=== PATIENT | female | born 1955 | race Caucasian/White ===

== ENCOUNTER 2020-11-08 15:00 | Outpatient (CLI) | payer BC, SELFPAY | END 2020-11-08 15:01 | disposition home or self-care (01) | LOC: ANHLAB 15:08 | PROVIDERS: Visit Provider Nurse Practitioner Adult Health | DX: R30.0 Dysuria (principal) | CPT/HCPCS: 87077; 87086; 87088; 87186 ==

== ENCOUNTER 2020-11-28 20:57 | Emergency (ER) | payer BC, SELFPAY ==
--- NOTE | ~2020-11-28 | XR_ITS ---
EXAMINATION: XR foot RT min 3V DATE: 11/28/2020 21:30 INDICATION: Right foot pain TECHNIQUE: Dorsoplantar, lateral, and 2 oblique views of the right foot were obtained. COMPARISON: 12/28/2010 FINDINGS: There is no fracture, dislocation, or subluxation. The bones, soft tissues, and joint space s are normal. IMPRESSION: 1. No acute osseous abnormality. Reviewed, dictated and finalized at location [facility]. [facility]
[2020-11-28 21:11] VITALS: BP 105/69; PULSE 76; RESP 14; TEMP 37.3; O2SAT 100
--- NOTE | 2020-11-28 21:21 | ED.LOWEXIN ---
HPI - Extremity Injury (Lower) General Chief Complaint: Extremity Injury, Lower Stated Complaint: foot injury Time Seen by Provider: 11/28/20 21:21 Source: patient Mode of arrival: ambulatory Limitations: no limitations History of Present Illness HPI Narrative: Patient is a 64-year-old female complaining of right foot pain after she tripped on her slippers and fell with 3 flights of stairs. Patient states her pain is a 6 out of 10, dull, aching, nonradiating. Patient denies any head, neck, back, chest, pelvis, hip or any other extremity pain/injury. Patient denies any LOC. Related Data Home Medications Medication Instructions Recorded Confirmed citalopram mg 11/28/20 mirabegron [Myrbetriq] mg PO 11/28/20 Allergies Allergy/AdvReac Type Severity Reaction Status Date / Time Sulfa (Sulfonamide Allergy Unknown Unknown Verified 11/28/20 21:20 Antibiotics) Review of Systems Review of Systems: All systems reviewed & are unremarkable except as noted in HPI and below Constitutional: Constitutional: Denies body ache(s), Denies chills, Denies excessive sweating, Denies fatigue, Denies fever(s), Denies headache(s), Denies lethargy, Denies malaise, Denies weakness and Denies weight loss Eyes: Eyes: Denies blurry vision, Denies change in vision and Denies loss of vision ENT: Denies dizziness, Denies ear discharge, Denies headache(s), Denies lip swelling, Denies epistaxis, Denies nasal congestion, Denies neck pain, Denies throat swelling and Denies tongue swelling Cardiovascular: Cardiovascular: Denies chest pain, Denies chest pain at rest, Denies chest pain with activity, Denies diaphoresis, Denies rapid heart rate, Denies edema, Denies irregular heart rhythm, Denies lightheadedness, Denies palpitations, Denies dyspnea and Denies dyspnea on exertion Respiratory: Respiratory: Denies chest congestion, Denies cough, Denies hemoptysis, Denies dyspnea and Denies dyspnea on exertion Gastrointestinal: Gastrointestinal: Denies abdominal pain, Denies melena, Denies hematochezia, Denies diarrhea, Denies nausea, Denies vomiting and Denies hematemesis Musculoskeletal: Musculoskeletal: Denies abnormal gait, Denies deformity, Denies joint swelling, Denies neck pain and Denies numbness Neurologic: Denies Abnormal speech present, Denies abnormal gait, Denies confusion, Denies dizziness, Denies headache(s), Denies focal weakness, Denies loss of vision, Denies numbness, Denies Other visual disturbances, Denies Sensory deficit (Neuro) and Denies weakness Psychiatric: Psychiatric: Denies confusion, Denies depression, Denies auditory hallucinations, Denies homicidal ideation and Denies suicidal ideation Endocrine: Endocrine: Denies cold intolerance, Denies excessive sweating, Denies fatigue, Denies heat intolerance and Denies palpitations Hematologic/Lymphatic: Hematologic/Lymphatic: Denies easy bleeding and Denies easy bruising Allergic/Immunologic: Allergic/Immunologic: Denies lip swelling, Denies throat swelling and Denies tongue swelling Exam Const: General: cooperative, healthy appearing, comfortable, no acute distress, well developed, alert and awake; No confusion Orientation/consciousness: oriented to person, oriented to place, oriented to time, patient oriented x3 and No confusion Limitations: no limitations HENMT: Head: normal to inspection, normocephalic and atraumatic Ears: hearing grossly normal bilaterally, TM normal on the right and TM normal on the left General nose exam: Normal external nose present, Normal nares present and No nasal discharge present Face and sinus: normal facial exam Mouth: Yes Normal oral and palatal mucosa present, Yes lip normal, Yes tongue normal and Yes oropharynx normal Throat: posterior oropharynx normal, tonsils normal and uvula midline Eyes: General: appearance normal, both eyes and all related structures Pupils: Equal, round and reactive pupils present EOM: EOMs intact bilaterally Neck: Neck: koffi
[2020-11-28] MEDS: HYDROcodone/acetaminophen (*CRX) 5-325 MG TABLET 1 TAB PO (22:47)
[2020-11-28] MEDS: NAPROXEN SODIUM 275 MG TABLET PO (22:47)
[2020-11-28 22:51] VITALS: BP 103/70; PULSE 73; RESP 18; TEMP 37.1; O2SAT 98
== END 2020-11-28 22:53 | disposition home or self-care (01) ==
PROVIDERS: Emergency Provider Emergency Medicine
DX: S93.601A Unspecified sprain of right foot, initial encounter (principal); W10.9XXA Fall (on) (from) unspecified stairs and steps, initial encounter
CPT/HCPCS: 73630; 99283; A9270

== ENCOUNTER 2024-09-06 13:00 | Outpatient (CLI) | payer MEDICARE, SELFPAY ==
--- NOTE | ~2024-09-06 | DEXA_ITS ---
Bone Density Report Name: GUILLERMINA CHANG Age: 68 Sex: Female Ethnicity: White Date of : 1955 Indication: postmenopausal; screening for osteoporosis; height loss; Referring Provider: BRYN, WILLOW Blevins Study: Bone densitometry was performed. Exam Date: September 06, 2024 Accession number: [id number] Bone Density: Region BMD T-score Z-score Classification AP Spine(L1-L4) 0.903 -1.3 0.7 Osteopenia Femoral Neck (Left) 0.669 -1.6 0.1 Osteopenia Total Hip (Left) 0.843 -0.8 0.6 Normal Femoral Neck (Right) 0.665 -1.7 0.1 Osteopenia Total Hip (Right) 0.836 -0.9 0.6 Normal Total Hip Mean 0.840 -0.9 0.6 Normal World Health Organization criteria for BMD impression classify patients as: Normal (T-score at or above -1.0), Osteopenia (T-score between -1.0 and -2.5), or Osteoporosis (T-score at or below -2.5). 10-year Fracture Risk(1): Major Osteoporotic Fracture 10% Hip Fracture 1.4% Reported Risk Factors: [place] (), Neck BMD=0.669, BMI=26.4 (1) FRAX(R) Version 3.08. Fracture probability calculated for an untreated patient. Fracture probability may be lower if the patient has received treatment. Clinical Information Provided by Patient: Patient maximum height was 65 Menopause Age: 45 No regular weight bearing exercise Does not regularly consume dairy products Drinks caffeinated beverages Onset of menses at age 13 Number of children 1 Impression: The patient has low bone mass, based on the Right Femoral Neck T-score. The patient has an estimated ten-year risk of hip fracture of 1.4% and an estimated ten-year risk of major fracture of 10%, based on the WHO FRAX algorithm. Discussion: BONE DENSITY IS LOW AT ONE OR MORE SKELETAL SITES. This patient's lowest T-score is low at one or more skeletal sites. It meets the World Health Organization's (WHO) criteria for ?low bone mass? (T-score between -1.0 and -2.5). The patient's 10-year risk of fracture as calculated by FRAX is less than the threshold where pharmacological therapy is recommended by the National Osteoporosis Foundation (NOF). However, all treatment decisions require clinical judgment and consideration of individual patient factors, including patient preferences, comorbidities, previous drug use, risk factors not captured in the FRAX model (e.g., frailty, falls, vitamin D deficiency, increased bone turnover, interval significant decline in bone density) and possible under or overestimation of fracture risk by FRAX. The patient should follow a healthful lifestyle (good nutrition with adequate calcium and vitamin D, and appropriate weight-bearing exercise). Follow-Up: Consider repeating this study in 2 to 3 years to reassess this patient's status, or sooner if there is some new clinical indication. Reported by: MIKE on 09/06/2024 1:40:00 PM. Reviewed, dictated and finalized at location [facility]
== END 2024-09-06 13:01 | disposition home or self-care (01) ==
LOC: ANHIMG 13:02
PROVIDERS: PCP Family Medicine; Visit Provider Registered Nurse
DX: Z13.820 Encounter for screening for osteoporosis (principal); M81.0 Age-related osteoporosis without current pathological fracture; M85.88 Other specified disorders of bone density and structure, other site; M85.852 Other specified disorders of bone density and structure, left thigh; M85.851 Other specified disorders of bone density and structure, right thigh
CPT/HCPCS: 77080

== ENCOUNTER 2024-09-12 01:40 | Day surgery (SDC) | payer MEDICARE, SELFPAY ==
[2024-08-03 12:37] VITALS: BMI 25.7
[2024-08-31 14:59] VITALS: BMI 25.7
[2024-09-12 13:30] VITALS: BP 130/71; PULSE 73; RESP 18; TEMP 37.1; O2SAT 100
--- NOTE | 2024-09-12 13:35 | WPDANESEPPF ---
Anes - Initial Pre Proc Eval Procedure: Operation Date: 09/12/24 14:00 Proposed Procedures p Screening Colonoscopy - Adria Cleaning MD Date/Time: 09/12/24 13:35 Surgeon: Adria Cleaning MD Pre Op Diagnosis: screening colon Patient Data Age: 68 Gender: F Height: 1.63 m Weight: 68 kg Last Vital Signs Temp 37.1 C 09/12/24 13:30 Pulse 73 09/12/24 13:30 Resp 18 09/12/24 13:30 BP 130/71 09/12/24 13:30 Pulse Ox 100 09/12/24 13:30 O2 Del Method Room Air 09/12/24 13:30 Allergies Allergy/AdvReac Type Severity Reaction Status Date / Time Sulfa eye drops Allergy Other Uncoded 09/12/24 13:29 Home Medications ?Medication ?Instructions ?Recorded ?Confirmed ?Type citalopram 20 mg tablet 20 mg PO DAILY 11/28/20 08/31/24 History mirabegron 50 mg tablet,extended 50 mg PO DAILY 11/28/20 08/31/24 History release 24 hr (Myrbetriq) simvastatin 20 mg tablet 20 mg PO DAILY 01/05/23 08/31/24 History Patient hx anesthesia problems: none Family hx anesthesia problems: none Results Review: All pre-operative results and documents have been reviewed as part of the pre-operative evaluation. [facility] Past Medical History Medical History (Updated 09/12/24 @ 13:36 by Adam Patel MD) Hyperlipidemia Anxiety Family History Family History Father Cancer Hypertension Heart disease Mother Hypertension Heart disease Grandparent Heart disease Grandparent Heart disease Social History Social History Smoking status: Never smoker Alcohol intake: current Substance use: never Substance use type: does not use Lack of Transportation: No Lack of Food: Never True Current Housing: I Have Housing Concerned About Future Housing: No Difficulty Paying Gas/Electric Bills: No Difficulty Paying for Meds: No Currently Unemployed: No Education: Bachelor's Degree Difficulty w/ Childcare or Family Care: No Living arrangements: with family Spiritual care concerns: No Anes - Eval Final PreProcedure Day of Procedure 09/12/24 13:35 Patient weight: normal Heart: regular rate and rhythm Lungs: clear to auscultation Airway: Mallampati scale class II Neurological: alert and oriented Last oral intake: >/= 8 hours ASA classification: II Emergent: no Anesthetic plan: proceed Anesthesia type and monitoring: general GIVS and standard monitoring Results Review: All pre-operative results and documents have been reviewed as part of the pre-operative evaluation. Informed Consent: The patient's anesthetic plan and its attendant risks and benefits were discussed with the patient/family/POA. Questions were solicited and answers provided to the satisfaction of the patient/family/POA.
[2024-09-12] MEDS: LACTATED RINGERS 1,000 ML 150 ML IV CONT (13:42)
--- NOTE | 2024-09-12 15:03 | P.HP_ITS ---
H&P: HPI History of Present Illness Date/Time: 09/12/24 15:03 Chief Complaint: screening colonoscopy Narrative: This is the patient's first colonoscopy. There are no GI symptoms and there is no family history of colorectal cancer. Review of Systems Review of Systems: All systems reviewed & are unremarkable except as noted in HPI and below [facility] Past Medical History Medical History (Updated 09/12/24 @ 15:04 by Adria Cleaning MD) Hyperlipidemia Anxiety Family History Family History Father Cancer Hypertension Heart disease Mother Hypertension Heart disease Grandparent Heart disease Grandparent Heart disease Social History Social History Smoking status: Never smoker Alcohol intake: current Substance use: never Substance use type: does not use Lack of Transportation: No Lack of Food: Never True Current Housing: I Have Housing Concerned About Future Housing: No Difficulty Paying Gas/Electric Bills: No Difficulty Paying for Meds: No Currently Unemployed: No Education: Bachelor's Degree Difficulty w/ Childcare or Family Care: No Living arrangements: with family Spiritual care concerns: No Meds Home Medications and Allergies Home Medications ?Medication ?Instructions ?Recorded ?Confirmed ?Type citalopram 20 mg tablet 20 mg PO DAILY 11/28/20 09/12/24 History mirabegron 50 mg tablet,extended 50 mg PO DAILY 11/28/20 09/12/24 History release 24 hr (Myrbetriq) simvastatin 20 mg tablet 20 mg PO DAILY 01/05/23 09/12/24 History Allergies Allergy/AdvReac Type Severity Reaction Status Date / Time Sulfa eye drops Allergy Other Uncoded 09/12/24 13:29 Vital Signs Vital Signs - 24 hr 09/12/24 13:30 Temperature 98.7 F Pulse Rate 73 Respiratory Rate 18 Blood Pressure 130/71 Pulse Oximetry 100 Oxygen Delivery Room Air Exam Const: General: cooperative and healthy appearing Resp: Effort & Inspection: normal respiratory effort and able to speak in complete sentences Auscultation: clear to auscultation bilaterally Cardio: Rate: regular rate Rhythm: regular rhythm GI: Inspection: normal to inspection GI Palp: No No hepatosplenomegaly present Auscultation: normal bowel sounds Rectal Exam: deferred Skin: General skin exam: normal color Psych: Appearance: grossly normal Mental Status: mental status grossly normal Assessment and Plan Assessment and plan (1) Screening for malignant neoplasm of colon: Code(s): Z12.11 - Encounter for screening for malignant neoplasm of colon Status: Acute Assessment and Plan: The patient is deemed a good candidate for the procedure. Consent signed. Will proceed.
[2024-09-12 15:31] VITALS: BP 82/60; PULSE 55; RESP 18; O2SAT 99
[2024-09-12 15:42] VITALS: BP 112/59; PULSE 67; RESP 21; O2SAT 98
[2024-09-12 15:51] VITALS: BP 123/72; PULSE 67; RESP 20; O2SAT 100
== END 2024-09-12 16:00 | disposition home or self-care (01) ==
PROVIDERS: PCP Family Medicine; Visit Provider Internal Medicine Gastroenterology
PROC: 0DJD8ZZ Inspection of Lower Intestinal Tract, Via Natural or Artificial Opening Endoscopic (ICD-10-PCS; CPT 45378; principal; 2024-09-12 14:00)
DX: Z12.11 Encounter for screening for malignant neoplasm of colon (principal); K63.5 Polyp of colon; E78.5 Hyperlipidemia, unspecified; F41.9 Anxiety disorder, unspecified; Z80.9 Family history of malignant neoplasm, unspecified; Z82.49 Family history of ischemic heart disease and other diseases of the circulatory system
CPT/HCPCS: 45385; 88305; J2003; J2704; J7120

== ENCOUNTER 2025-04-24 10:35 | Outpatient (CLI) | payer MEDICARE, SELFPAY ==
--- NOTE | ~2025-04-24 | CT_ITS ---
CT of the Abdomen and Pelvis: Indication: Hematuria Technique: 2.5 mm axial scans were obtained through the abdomen and pelvis prior to and following in travenous administration of 130 cc of Omnipaque 350. Dose reduction technique was used on this scan b y utilizing automated exposure control and iterative reconstruction technique. The dose-length produc t (DLP) was 684.00 mGy-cm. Findings: Scans through the lung bases are unremarkable. The liver, spleen, pancreas, gallbladder, adrenals and kidneys are within normal limits. No evidence of aortic aneurysm. No lymphadenopathy. No bowel obstruction or bowel wall thickening. There is no evidence to suggest acute appendicitis. Images through the pelvis were performed. Urinary bladder unremarkable. No pelvic mass seen. No ascit es. Impression: No significant abnormalities seen. No etiology for hematuria identified. Reviewed, dictated and finalized at [facility]. Impression: No significant abnormalities seen. No etiology for hematuria identified.
--- OUTSIDE RECORDS SUMMARY | 2025-04-24 10:48 | XMS_ITS | Clinical Summary ---
Author Organization [facility] Address [address] [place] [address] Care Team Providers Care Production Bow Maker Name Role Phone Jose E Greco MD Primary Care Provider [phone] Allergies No known active allergies Medications estradiol (ESTRACE) 0.01 % (0.1 mg/gram) vaginal cream insert (1G) by vaginal route 3 times every week 3 6 10/07/2012 Active oxybutynin (GELNIQUE) 28 mg/0.92 gram (3 %) gel in metered-dose pump 0 10/07/2012 Active Surgical History Surgery Date Site/Laterality Comments BREAST CYST ASPIRATION BREAST BIOPSY Family History Medical History Relation Name Comments Heart attack Father Family history of myocardial infarction - (Added by TW Conv) Prostate cancer Father Family histo ry of malignant neoplasm of prostate - (Added by TW Conv) Other Other 1 No family histo ry of Cancer, breast; Other Other 2 No family histo ry of Cancer, colon; Other Other 3 No family histo ry of Cervical cancer; Other Other 4 No family histo ry of Ovarian cancer; Breast cancer Paternal cousin Relation Name Status Comments Father Other 1 Other 2 Other 3 Other 4 Paternal cousin Social History Tobacco Use Types Packs/Day Years Used Date Smoking Tobacco: Never Alcohol Use Standard Drinks/Week Comments Yes 0 (1 standard drink = 0.6 oz pur e alcohol) Comments No Sex and Gender Information Value Date Recorded Sex Assigned at Not on file 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 Gender Identity Not on file Sexual Orientation Not on file Obstetrics History Para Term AB IAB SAB Ectopic Multiple Livin g Live Births 1 Date Outcome GA Total Labor Labor/2nd/3rd Weight Sex Type Anes PTL Iesha A1 A5 Name Clin Last Filed Vital Signs Vital Sign Reading Time Taken Comments Blood Pressure 118/77 02/25/2015 3:27 PM CDT Pulse - - Temperature - - Respiratory Rate - - Oxygen Saturation - - Inhaled Oxygen Concentration - - Weight 69.8 kg (153 lb 15.9 oz) 02/25/2015 3:27 PM CDT Height 165.1 cm (5' 5) 02/25/2015 3:27 PM CDT Body Mass Index 25.63 02/25/2015 3:27 PM CDT Plan of Treatment Health Maintenance Due Date Last Done Comments Colon Cancer Screening-Colonoscopy 1955 Depression Screening 1955 Fall Risk Assessment 1955 Hepatitis C Screening 1955 Osteoporosis Screening-Bone Density Scan 1955 Hepatitis B Screening 12/23/1973 Pneumococcal vaccine 65+ (1 of 1 - PCV) 12/23/2005 Zoster Vaccine (1 of 2) 12/23/2005 DTaP/Tdap/Td Vaccine (2 - Td or Tdap) 09/27/2020 09/27/2010 Well Visit 65+ 12/23/2020 Influenza Vaccine (#1) 2025 Breast Cancer Screening-Mammogram 01/15/2026 01/15/2025, 11/17/2023, 11/16/2022, Additional history exists Procedures Procedure Name Priority Date/Time Associated Diagnosis Comments SCREENING MAMMOGRAM BILATERAL W MONTEZ Schedule Routine, Read Routine (OP Routine) 01/15/2025 2:55 PM CDT Screening mammogram, encounter for from Last 3 Months or Most Recently Relevant to Health Maintenance Results * Screening Mammogram Bilateral W Montez (01/15/2025 2:55 PM CDT) Anatomical Region Laterality Modality Breast Bilateral Mammography Impressions 01/16/2025 7:49 AM CDT Bilateral No evidence of malignancy in either breast. OVERALL BI-RADS FINAL ASSESSMENT: 1 - Negative RECOMMENDATION: Recommend bilateral annual screening mammography. Narrative 01/16/2025 7:49 AM CDT EXAMINATION: Screening Mammogram Bilateral W Montez: 01/15/2025 COMPARISON: Relevant prior studies available at the time of interpretation were reviewed. TECHNIQUE: Mammography was performed with 2D and digital breast tomosynthesis (DBT) images. CAD was utilized. BREAST PARENCHYMAL COMPOSITION: The breasts are heterogeneously dense, which may obscure small masses. FINDINGS: Bilateral There is no suspicious mass, calcification, or architectural distortion in either breast. us Self Screening Mammogram IMG MAMMO PROCEDURES Fi nal Result from Last 3 Months or Most Recently Relevant to Health Maintenance Insurance [facility] CHOICE PLUS [facility] HMO/PPO Address: [facility] [address] [place] [address] [employer] [facility] [facility] CHOICE OOS Member Subscriber Plan / Payer (Ef fective 2021-Present) Name:Kori Clinton Margot Relation to Subscriber:Self Name:Kori Clinton Payer ID:[id number] (NAIC) Type:[facility] Address: [address] CHOICE MEDICARE PPO [facility] CHOICE MEDICARE PPO Care Teams Production Bow Maker Relationship Specialty Start Date End Date Jose E Greco MD PCP - General Family Medicine 09/15/21
--- OUTSIDE RECORDS SUMMARY | 2025-04-24 10:48 | XMS_ITS | Clinical Summary ---
Author Organization [facility] [employer] [facility] Address [address] [place] [address] Care Team Providers Care Yard Caller Name Role Phone Unavailable Primary Care Provider Unavailabl e Source Comments [facility] [employer] [facility],non-owned Affiliates and Associated Physician Practices is amultiple site organization consisting of ambulatory clinics and hospital sitesin [place], [place], [place]. This disclosure is being madepursuant to the Care Everywhere program and may not contain all information available regarding this patient. 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 Gender Identity Not on file Sexual Orientation Not on file Plan of Treatment Health Maintenance Due Date Last Done Comments BONE DENSITY TESTING 1955 COLOGUARD (AGES 45-75) - COL ON CA SCREENING 1955 COLON MONITORING 1955 COLONOSCOPY - COLON CA SCREENING 1955 CT COLONOGRAPHY - COLON CA SCREENING 1955 Colorectal Cancer Screening 1955 FIT - COLON CA SCREENING 1955 FLEX SIG - COLON CA SCREENING 1955 LIPID TESTING 1955 MAMMOGRAM 1955 HEPATITIS C SCREENING 12/19/1973 DTAP/TDAP/TD VACCINES (1 - Tdap) 12/23/1974 PNEUMOCOCCAL VACCINE 50+ (1 of 1 - PCV) 12/23/2005 ZOSTER VACCINE (1 of 2) 12/23/2005 COVID-19 VACCINE (1 - 2023-2 5 season) 2024 DEPRESSION SCREENING 09/27/2024 MEDICARE AWV CALENDAR YEAR 2024 INFLUENZA VACCINE (#1) 2025 Respiratory Syncytial Virus (RSV) Vaccine Pt: or over 60 yrs (1 - 1-dose 75+ series) 12/23/2030 HEPATITIS B VACCINE Aged Out No longe r eligible based on patient's age to complete this topic HIB VACCINE Aged Out No longer eligi ble based on patient's age to complete this topic HPV VACCINE Aged Out No longer eligi ble based on patient's age to complete this topic MENINGOCOCCAL (Group B) VACC INE SHARED DECISION-MAKING Aged Out No longer eligibl e based on patient's age to complete this topic MENINGOCOCCAL GROUPS A/C/Y/W VACCINE Aged Out No longer eligible b ased on patient's age to complete this topic Insurance [facility] SELF PAY NO INSURANCE Member Subscriber Plan / Payer (Ef fective for All Dates) Name:Guillermina Chang Member ID:Not on file Relation to Subscriber:Not on file Name:GUILLERMINA CHANG Subscriber ID:Not on file (Home) Address: [address] [place] [address] Payer ID:Not on file Group ID:Not on file Type:Self Pay Address: [place], [place] [employer] MEDICARE ADV HMO & PPO
--- OUTSIDE RECORDS SUMMARY | 2025-04-24 10:48 | XMS_ITS | Clinical Summary ---
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 Gender Identity Not on file Sexual Orientation Not on file Plan of Treatment Health Maintenance Due Date Last Done Comments Hepatitis C Virus (HCV) Screening 1955 TdaP Immunization 1955 Cologuard 12/23/2000 Colonoscopy 12/23/2000 Colorectal Cancer Screening 12/23/2000 Immunochemical Fecal Occult Blood 12/23/2000 Pneumococcal Immunization (5 0+ years) (1 of 1 - PCV) 12/23/2005 Zoster Immunization (1 of 2) 12/23/2005 SARS-COV-2 Immunization (1 - 2023- season) 2024 Influenza Immunization (#1) 2025 Respiratory Syncytial Virus (RSV) Immunization (Adult) (1 - 1-dose 75+ series) 12/23/2030 Hepatitis B Immunization Aged Out No longer eligible based on patient's age to complete this topic Human Papillomavirus (HPV) Immunization Aged Out No longer eligible b ased on patient's age to complete this topic Meningococcal Immunization (ACWY) Aged Out No longer eligible based on patient's age to complete this topic Rotavirus Immunization Aged Out No lo nger eligible based on patient's age to complete this topic
--- OUTSIDE RECORDS SUMMARY | 2025-04-24 10:48 | XMS_ITS | Referral Summary ---
Author Organization [facility] Address [address] [place] [address] Care Team Providers Care Fiberglass Bonding Machine Tender Name Role Phone Jose E Greco MD Primary Care Provider [phone] Allergies No known active allergies Medications estradiol (ESTRACE) 0.01 % (0.1 mg/gram) vaginal cream insert (1G) by vaginal route 3 times every week 3 6 10/07/2012 Active oxybutynin (GELNIQUE) 28 mg/0.92 gram (3 %) gel in metered-dose pump 0 10/07/2012 Active Social History Tobacco Use Types Packs/Day Years Used Date Smoking Tobacco: Never Alcohol Use Standard Drinks/Week Comments Yes 0 (1 standard drink = 0.6 oz pur e alcohol) Comments No Sex and Gender Information Value Date Recorded Sex Assigned at Not on file Legal Sex Female 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 CHOICE PLUS [facility] HMO/PPO Address: [facility] [address] [place] [address] ANTH ACCESS BLUE ACCESS OOS BLUE ACC CHOICE OOS [employer] CHOICE MEDICARE PPO [employer] CHOICE MEDICARE PPO Care Teams Fiberglass Bonding Machine Tender Relationship Specialty Start Date End Date Jose E Greco MD PCP - General Family Medicine 09/15/21
--- OUTSIDE RECORDS SUMMARY | 2025-04-24 10:48 | XMS_ITS | Encounter Summary ---
Author Organization [facility] Address [address] [address] Care Team Providers Care Medical Staff Physician Name Role Phone Unavailable Primary Care Provider Unavailabl e Encounter Details Date Type Department Care Team (Late st Contact Info) Description 11/07/2024 Lab Requisition [facility] - DermPath Lab [address] [place] [address] Alvin García MD [address] [place] [address] Social History Tobacco Use Types Packs/Day Years Used Date Smoking Tobacco: Never Assessed Comments Unknown Sex and Gender Information Value Date Recorded Sex Assigned at Not on file Legal Sex Female 7:04 AM MANUFACTURING SUPERVISOR Gender Identity Not on file Sexual Orientation Not on file documented as of this encounter Plan of Treatment Not on file documented as of this encounter Procedures Procedure Name Priority Date/Time Associated Diagnosis Comments DERMATOPATHOLOGY Routine 11/06/2024 12:0 0 AM MANUFACTURING SUPERVISOR documented in this encounter Results * DERMATOPATHOLOGY (11/06/2024 12:00 AM MANUFACTURING SUPERVISOR) Case Report Dermatopathology Report Case: [id number] Authorizing Provider: Alvin García MD Collected: 11/06/2024 12:00 AM Ordering Location: [facility] Physician [facility] - Received: 11/08/2024 06:20 AM DermPath Lab Pathologist: Rd Dejesus MD Specimens: A) - Skin, left flank B) - Skin, right inner thigh 4:43 PM MANUFACTURING SUPERVISOR DERMATOPATHOLOGY LABORATORY Final Diagnosis Specimen A. SKIN, left flank: HEMANGIOMA (D18.01) Specimen B. SKIN, right inner thigh: NEVUS LIPOMATOSUS SUPERFICIALIS (D17.30) 4:43 PM MANUFACTURING SUPERVISOR DERMATOPATHOLOGY LABORATORY at 1643 MANUFACTURING SUPERVISOR Clinical History A: Irr. Hemangioma B: Irr. Nevus 4:43 PM [facility] DERMATOPATHOLOGY LABORATORY Gross Description Specimen A: Received is one formalin filled container labeled with the patients name and designated left flank. The specimen consists of a shave removal measuring 3x3x1 mm. Jar 0. Specimen B: Received is one formalin filled container labeled with the patients name and designated right inner thigh. The specimen consists of a shave removal measuring 4x4x2 mm. Jar 0. 4:43 PM [facility] DERMATOPATHOLOGY LABORATORY Microscopic Description Specimen A. SKIN, left flank: In the dermis, there are dilated vascular spaces surrounded by widely spaced endothelial cells. Specimen B. SKIN, right inner thigh: There is a gently folded epidermis surrounding a connective tissue core in which fat and collagen are intermingled. 4:43 PM [facility] DERMATOPATHOLOGY LABORATORY Disclaimer An external and internal positive and negative controls are appropriate for the histochemical, immunohistochemical and immunofluorescence stain(s) in this case (if any), except where stated explicitly. The performance characteristics of the stain(s) cited in this report were developed and its performance characteristic determined by the Dermatopathology Laboratory at [facility], directed by Dr. Anna Dejesus. These tests need not be, and therefore are not, approved by the [place] Food and Drug Administration. The tests are used for clinical purposes. Billing Codes Specimen Charges Stain Charges 75104 27218 1 1 5 4:43 PM [facility] DERMATOPATHOLOGY LABORATORY Embedded Images 5 4:43 PM [facility] DERMATOPATHOLOGY LABORATORY Pathology/Cytology TISSUE SPECIMEN FROM SKIN / Unknown 11/06/2024 11/08/2024 6:20 AM MANUFACTURING SUPERVISOR Miscellaneous samples (specimen) TISSUE SPECIMEN FROM SKIN / Unknown 11/06/2024 11/08/2024 6:20 AM MANUFACTURING SUPERVISOR us Alvin García MD LAB - PATHOLOGY/CYTOLOGY ORDERAB LES Final Result DERMATOPATHOLOGY LABORATORY [facility] - Department of Dermatology [address], [address] [place], [place] [id number] [place] [address] documented in this encounter Visit Diagnoses Not on filedocumented in this encounter
[2025-04-25 10:55] LABS: Estimated Glomerular Filt Rate 55
== END 2025-04-24 10:36 | disposition home or self-care (01) ==
PROVIDERS: PCP Family Medicine; Visit Provider Physician Assistant
DX: R31.29 Other microscopic hematuria (principal)
CPT/HCPCS: 74178; Q9967

== ENCOUNTER 2025-05-22 10:02 | Outpatient (CLI) | payer MEDICARE, SELFPAY ==
--- OUTSIDE RECORDS SUMMARY | 2025-05-22 10:33 | XMS_ITS | Clinical Summary ---
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 Gender Identity Not on file Sexual Orientation [...] Most Recently Relevant to Health Maintenance Insurance [facility] CHOICE PLUS [email or web address] OOS [facility] CHOICE OOS Member Subscriber Plan / Payer (Ef fective 2021-Present) Name:Kori Clinton Margot Relation to Subscriber:Self Name:Kori Clinton Payer ID:[id number] (NAIC) Type:[facility] Address: [address] CHOICE MEDICARE PPO [facility] CHOICE MEDICARE PPO Care Teams Rock Loader Relationship Specialty Start Date End Date Jose E Greco MD PCP - General Family Medicine 09/15/21
--- OUTSIDE RECORDS SUMMARY | 2025-05-22 10:33 | XMS_ITS | Clinical Summary ---
Author Organization [facility] Care Team Providers Care Cloth Booker Name Role Phone Unavailable Primary Care Provider Unavailabl e Social History Tobacco Use Types Packs/Day Years Used Date Smoking Tobacco: Never Assessed Comments Unknown Sex and Gender Information Value Date Recorded Sex Assigned at Not on file Legal Sex Female 4:09 PM HEEL TURNER Gender Identity Not on file Sexual Orientation [...]
--- OUTSIDE RECORDS SUMMARY | 2025-05-22 10:33 | XMS_ITS | Clinical Summary ---
Author Organization [facility] [employer] Address [address] [place] [address] Care Team Providers Care Sinter Feeder Name Role Phone Unavailable Primary Care Provider Unavailabl e Source Comments [facility] [employer],non-owned Affiliates and Associated Physician Practices is amultiple site organization consisting of ambulatory clinics and hospital sitesin [place], [place] and [place]. This disclosure is being madepursuant to the Care Everywhere program and may not contain all information available regarding this patient. 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 SELF PAY NO INSURANCE Member Subscriber Plan / Payer (Ef fective for All Dates) Name:Guillermina Chang Member ID:Not on file Relation to Subscriber:Not on file Name:GUILLERMINA CHANG Subscriber ID:Not on file (Home) Address: [address] [place] [address] Payer ID:Not on file Group ID:Not on file Type:Self Pay Address: [place], [place] [employer] MEDICARE ADV HMO & PPO
--- OUTSIDE RECORDS SUMMARY | 2025-05-22 10:33 | XMS_ITS | Encounter Summary ---
Author Organization [facility] Address [address] [place] [address] Care Team Providers Care Brick Pitcher Name Role Phone Unavailable Primary Care Provider Unavailabl e Encounter Details Date Type Department Care Team (Late st Contact Info) Description 11/07/2024 Lab Requisition [facility] - DermPath Lab [address] [place] [address] Alvin García MD [address] [place] [address] Social History Tobacco Use Types Packs/Day Years Used Date Smoking Tobacco: Never Assessed Comments Unknown Sex and Gender Information Value Date Recorded Sex Assigned at Not on file Legal Sex Female 7:04 AM CASE SEALER Gender Identity Not on file Sexual Orientation Not on file documented as of this encounter Plan of Treatment Not on file documented as of this encounter Procedures Procedure Name Priority Date/Time Associated Diagnosis Comments DERMATOPATHOLOGY Routine 11/06/2024 12:0 0 AM CASE SEALER documented in this encounter Results * DERMATOPATHOLOGY (11/06/2024 12:00 AM CASE SEALER) Case Report Dermatopathology Report Case: [id number] Authorizing Provider: Alvin García MD Collected: 11/06/2024 12:00 AM Ordering Location: [facility] Physician [facility] - Received: 11/08/2024 06:20 AM DermPath Lab Pathologist: Rd Dejesus MD Specimens: A) - Skin, left flank B) - Skin, right inner thigh 4:43 PM CASE SEALER DERMATOPATHOLOGY LABORATORY Final Diagnosis Specimen A. SKIN, left flank: HEMANGIOMA (D18.01) Specimen B. SKIN, right inner thigh: NEVUS LIPOMATOSUS SUPERFICIALIS (D17.30) 4:43 PM CASE SEALER DERMATOPATHOLOGY LABORATORY at 1643 CASE SEALER Clinical History A: Irr. Hemangioma B: Irr. Nevus 4:43 PM [facility] DERMATOPATHOLOGY LABORATORY Gross Description Specimen A: Received [...] measuring 4x4x2 mm. Jar 0. 4:43 PM [facility] DERMATOPATHOLOGY LABORATORY Microscopic Description Specimen A. SKIN, left flank: In the dermis, there are dilated vascular spaces surrounded by widely spaced endothelial cells. Specimen B. SKIN, right inner thigh: There is a gently folded epidermis surrounding a connective tissue core in which fat and collagen are intermingled. 4:43 PM [facility] DERMATOPATHOLOGY LABORATORY Disclaimer An external and internal positive and negative controls are appropriate for the histochemical, immunohistochemical and immunofluorescence stain(s) in this case (if any), except where stated explicitly. The performance characteristics of the stain(s) cited in this report were developed and its performance characteristic determined by the Dermatopathology Laboratory at [facility], directed by Dr. Anna Dejesus. These tests need not be, and therefore are not, approved by the [place] Food and Drug Administration. The tests are used for clinical purposes. Billing Codes Specimen Charges Stain Charges 64044 92567 1 1 5 4:43 PM [facility] DERMATOPATHOLOGY LABORATORY Embedded Images 5 4:43 PM [facility] DERMATOPATHOLOGY LABORATORY Pathology/Cytology TISSUE SPECIMEN FROM SKIN / Unknown 11/06/2024 11/08/2024 6:20 AM CASE SEALER Miscellaneous samples (specimen) TISSUE SPECIMEN FROM SKIN / Unknown 11/06/2024 11/08/2024 6:20 AM CASE SEALER us Alvin García MD LAB - PATHOLOGY/CYTOLOGY ORDERAB LES Final Result DERMATOPATHOLOGY LABORATORY [facility] - Department of Dermatology [address] [place], [place] [address] [place] [address] documented in this encounter Visit Diagnoses Not on filedocumented in this encounter
== END 2025-05-22 10:03 | disposition home or self-care (01) ==
LOC: ANHAUDIO 10:03
PROVIDERS: PCP Family Medicine; Visit Provider Otolaryngology
DX: H90.42 Sensorineural hearing loss, unilateral, left ear, with unrestricted hearing on the contralateral side (principal); H90.71 Mixed conductive and sensorineural hearing loss, unilateral, right ear, with unrestricted hearing on the contralateral side
CPT/HCPCS: 92557; 92567

== ENCOUNTER 2025-06-29 10:00 | Outpatient (CLI) | payer MEDICARE, SELFPAY ==
--- NOTE | ~2025-06-29 | US_ITS ---
Examination: US abdomen complete Clinical History: ABN FINDINGS OF BLOOD CHEMISTRY;ABN FINDINGS IN URINE . Comparison: CT abdomen and pelvis 04/24/2025 Technique: Complete abdominal sonography Findings: Liver: Normal size. Normal echotexture. No intrahepatic biliary ductal dilatation. Normal hepatopedal flow main portal vein. Common duct: Normal caliber, 5 mm. Gallbladder: No stones. No wall thickening. No pericholecystic fluid. Spleen: Unremarkable. Pancreas: Visualized portions unremarkable. Kidneys: Left lower pole well circumscribed 2 cm hyperechoic focus consistent with angiomyolipoma, as seen on prior CT. Aorta: No aneurysmal dilatation. Retrohepatic IVC: Unremarkable. IMPRESSION: 1. No acute findings. 2. 2 cm angiomyolipoma left kidney. Reviewed, dictated and finalized at location R.
--- OUTSIDE RECORDS SUMMARY | 2025-06-29 10:17 | XMS_ITS | Clinical Summary ---
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
--- OUTSIDE RECORDS SUMMARY | 2025-06-29 10:17 | XMS_ITS | Clinical Summary ---
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 Gender Identity Not on file Sexual Orientation [...] Most Recently Relevant to Health Maintenance Insurance [facility] CHOICE PLUS [employer] OOS [facility] CHOICE OOS Member Subscriber Plan / Payer (Ef fective 2021-Present) Name:Kori Clinton Margot Relation to Subscriber:Self Name:Kori Clinton Payer ID:[id number] (NAIC) Type:[facility] Address: [address] CHOICE MEDICARE PPO [facility] CHOICE MEDICARE PPO Care Teams Powerhouse Electrician Relationship Specialty Start Date End Date Jose E Greco MD PCP - General Family Medicine 09/15/21
== END 2025-06-29 10:01 | disposition home or self-care (01) ==
PROVIDERS: PCP Family Medicine; Visit Provider Nurse Practitioner Family
DX: R79.89 Other specified abnormal findings of blood chemistry (principal); R82.998 Other abnormal findings in urine
CPT/HCPCS: 76700